=== PATIENT | female | born 1960 | race Caucasian/White ===

== ENCOUNTER 2016-07-09 13:56 | Inpatient (IN) | payer OTHER ==
[~2016-07-09] VITALS: Ht 160 cm; Wt 70.8 kg
[2016-07-09 13:58] VITALS: BP 123/79
[2016-07-09] MEDS ORDERED: NACL 0.9% 1,000 ML IV SCH (14:09)
[2016-07-09] MEDS ORDERED: ONDANSETRON 4 MG/2 ML VIAL IVP ONE (14:10)
--- NOTE | 2016-07-09 14:30 | NUR ---
55F BIBA FROM HOME C/O 5150 HOLD; PT PLACED ON 5150 HOLD BY KEVON BRADLEY; PER AMS, KEVON BRADLEY WENT TO DO WELFARE CHECK ON PT AT PT'S HOME; PER FAMILY, PT HAS BEEN REFUSING TO EAT FOR 3 WEEKS, REFUSED TO BATHE FOR SEVERAL DAYS, AND HAS BEEN DRINKING 3 BOTTLES OF VODKA EVERY WEEK FOR 3 WEEKS; PT DENIES ANY IDEAS OF SUICIDAL IDEATION, HURTING SELF OR OTHERS AT THIS TIME. HX: ALCOHOL ABUSE; DENIES DIARRHEA; SKIN IS PINK/WARM/DRY; AAOX4 WITH EVEN AND STEADY GAIT; LUNGS CLEAR BL; HR EVEN AND REGULAR; PT DENIES ANY FEVER, CP, SOB, OR COUGH AT THIS TIME; PATIENT STATES PAIN OF 6/10 AT THIS TIME; VSS; PATIENT POSITIONED FOR COMFORT; HOB ELEVATED; BEDRAILS UP X2; BED DOWN. ER MD MADE AWARE OF PT STATUS.
--- NOTE | 2016-07-09 14:58 | NUR ---
K 2.[address] FIELD NOTIFIED
[2016-07-09] MEDS ORDERED: NACL 0.9% 1,000 ML IV ONE ×2 (15:45→17:15)
[2016-07-09] MEDS ORDERED: POTASSIUM CHLORIDE 20% 40 MEQ/15 ML UDC PO ONE (15:45)
[2016-07-09] MEDS ORDERED: cefTRIAXone 2,000 MG in DEXTROSE 5% 100 ML IV ONE (17:15)
[2016-07-09] MEDS ORDERED: cefTRIAXone 2,000 MG VIAL ONE (17:23)
[2016-07-09] MEDS ORDERED: LORazepam 2 MG/ML VIAL IVP PRN ×2 (17:45→17:50)
[2016-07-09] MEDS ORDERED: MORPHINE SULFATE 4 MG/ML SYR IVP PRN (17:45)
[2016-07-09] MEDS ORDERED: ONDANSETRON 4 MG/2 ML VIAL IVP PRN (17:45)
[2016-07-09] MEDS ORDERED: MORPHINE SULFATE 2 MG/ML SYR IVP PRN (17:45)
--- NOTE | 2016-07-09 17:58 | NUR ---
STILL AWAITING FOR PATIENT TO BE DISCHARGED FROM [facility] AT 1815 PRIOR TO ADMISSION PER CHARGE NURSE,FERCHO.
--- NOTE | 2016-07-09 18:00 | NUR ---
RECEIVED REPORT FROM THE ER NURSE. WILL BE HERE IN 15 MIN. WILL GET ROOM READY.
--- NOTE | 2016-07-09 18:29 | NUR ---
Patient will be admitted to care of DR TRINH. Admited to TELE. Will go to room 110B. Belongings list completed. Report to BECKY HOPE.
[2016-07-09 18:30] VITALS: BP 108/58
--- NOTE | 2016-07-09 18:30 | NUR ---
PT CAME ON UNIT WITH 2 ER NURSES. PT AMBULATED FROM GURNEY TO BED. PT IS UNSTEADY. PT IS WET. CHANGED GOWN. STARTED V/S. V/S WITHIN N0RMAL RANGE. PT'S IV ON R AC 20G. NS RUNNING BOLUS. I PLACED IT IN THE PUMP AND IS RUNNING AT 200ML/HR. PLACED A BEDSIDE COMMODE. WILL ENDORSE PT TO THE DATA BASE ADMINISTRATOR NURSE. Addendum: 07/09/16 at 1950 by Claudia Milian RN SITTER AT BEDSIDE.
--- NOTE | 2016-07-09 19:20 | NUR ---
ENDORSED PT TO THE NIGHTSHIFT NURSE AT BEDSIDE FOR CONTINUITY OF CARE. PT IS ON 5150 HOLD. SITTER AT BEDSIDE. PT IS HUNGRY. GAVE HER SOME JELLO AND APPLE JUICE. PT IS IN STABLE CONDITION.
--- NOTE | 2016-07-09 19:30 | NUR ---
ADMITTED 55YEARS OLD FEMALE FROM ER VIA MELISSA, CC: ALCOHOL INTOXICATION WITH SUICIDAL TENDENCY. DX: PANCREATITIS. 5150 HOLD, SITTER 1:1 AT BEDSIDE. ORIENTED TO ROOM AND UNIT ROUTINES. CALL LIGHT WITHIN REACH. NO COMPLAINS AT THIS TIME.
[2016-07-09 22:05] VITALS: BP 101/71
[2016-07-10] MEDS: NACL 0.9% 1,000 ML IV SCH ×5 (00:20→23:57)
[2016-07-10 00:35] VITALS: BP 92/53
--- NOTE | 2016-07-10 00:42 | NUR ---
ASLEEP. SITTER AT BEDSIDE. NO COMPLAINS. VITALS SIGNS STABLE. AFEBRILE. SLEEPING. CALL LIGHT WITHIN REACH.
[2016-07-10 03:55] VITALS: BP 92/58
--- NOTE | 2016-07-10 03:57 | NUR ---
BEDSIDE COMMODE IN USE, SITTER 1:1 AT BEDSIDE. AWAKE. NO COMPLAINS. CALL LIGHT WITHIN REACH.
[2016-07-10] MEDS: ACETAMINOPHEN 325 MG TAB PO PRN ×2 (07:03→16:46)
--- NOTE | 2016-07-10 07:26 | NUR ---
ENDORSED CARE AT BEDSIDE WITH AMBER CALL RN IN STABLE CONDITION.
--- NOTE | 2016-07-10 07:27 | NUR ---
RECEIVED REPORT FROM NIGHT RN. PT RESTING IN BED. AAOX4. NO S/S OF ACUTE DISTRESS. PT STATES PAIN IS REDUCED FROM HEADACHE. IV SITE PATENT AND INTACT. SITTER AT BEDSIDE. CALL LIGHT WITHIN REACH. SAFETY MEASURES ENSURED. WILL CONTINUE TO MONITOR.
--- NOTE | 2016-07-10 07:57 | NUR ---
PATIENT HAS BEEN SCREENED AND CATEGORIZED HIGH NUTRITION RISK. PATIENT WILL BE SEEN WITHIN 1-2 DAYS OF ADMISSION. 07/10/16-07/11/[address]
[2016-07-10 08:00] VITALS: BP 104/62
[2016-07-10] MEDS ORDERED: POTASSIUM CHLORIDE 40 MEQ, LIDOCAINE 1% 25 MG in NACL 0.9% 250 ML IV SCH (09:00)
[2016-07-10] MEDS: ENOXAPARIN 40 MG/0.4 ML SYR SUBQ SCH (09:38)
[2016-07-10] MEDS: POTASSIUM CHLORIDE 10 MEQ TABER PO SCH ×2 (09:40→13:41)
--- NOTE | 2016-07-10 10:27 | NUR ---
PT RESTING IN BED. NO S/S DISTRESS. PT DENIES PAIN. CALL LIGHT WITHIN REACH. SAFETY MEASURES ENSURED. WILL CONTINUE TO MONITOR.
--- NOTE | 2016-07-10 11:57 | NUR ---
PT SLEEPING IN BED. NO S/S OF ACUTE DISTRESS. CALL LIGHT WITHIN REACH. SAFETY MEASURES ENSURED. WILL CONTINUE TO MONITOR.
[2016-07-10 12:00] VITALS: BP 94/60
[2016-07-10] MEDS ORDERED: MAG SULF 2000 MG/WATER PREMIX 100 ML IV SCH (13:00)
[2016-07-10] MEDS ORDERED: NICOTINE TRANSD SYS 21 MG/24 HR PATCH TD SCH (13:00)
--- NOTE | 2016-07-10 13:19 | NUR ---
CM NOTE PER [facility] ADMINISTRATOR RADHA EXT [id number], REVIEWS SHOULD GO TO [facility]. INITIAL REVIEW SENT TO FAX# [phone] TRACKING# [id number], PH# [phone] PAT EXT [id number]
--- NOTE | 2016-07-10 14:46 | NUR ---
PT RESTING IN BED. NO S/S OF ACUTE DISTRESS. PT DENIES PAIN. IV SITE PATENT AND INTACT. CALL LIGHT WITHIN REACH. SITTER AT BEDSIDE. WILL CONTINUE TO MONITOR.
[2016-07-10 16:00] VITALS: BP 94/60
--- NOTE | 2016-07-10 16:31 | NUR ---
PT RESTING IN BED. NO S/S OF ACUTE DISTRESS. PT STATES PAIN IS 5/10 HEADACHE. WILL MEDICATE ORDERED.
--- NOTE | 2016-07-10 19:30 | NUR ---
ENDORSED PLAN OF CARE TO NIGHT RN. PT REMAINS IN STABLE CONDITION.
--- NOTE | 2016-07-10 19:45 | NUR ---
RECEIVED PT IN STABLE CONDITION FROM AM NURSE. AWAKE,ALERT AND ORIENTED X4. ON TELE MONITOR. WITH IVF INFUSING WELL ON THE RT AC#20. WITH ASSISTANCE TO BSC. STILL WITH 1;1 SITTER. PLAN OF CARE DISCUSSED AND VERBALIZED UNDERSTANDING. CALL LIGHT PLACED WITHIN EASY REACH. INSTRUCTED TO CALL FOR ASSIST. WILL CONTINUE TO MONITOR.
[2016-07-10 20:00] VITALS: BP 98/65
--- NOTE | 2016-07-10 21:00 | NUR ---
PT HAS NO SUICIDAL INTENTION THIS TIME. BUT STILL NEED FREQUENT ROUNDS. WILL CONTINUE TO MONITOR.
[2016-07-11] VITALS: BP 94/61
--- NOTE | 2016-07-11 00:30 | NUR ---
SLEEPING AT THIS TIME. NO S/S OF ANY DISCOMFORT NOTED.
[2016-07-11 04:15] VITALS: BP 98/60
--- NOTE | 2016-07-11 04:25 | NUR ---
PT HAS BEEN STABLE DURING THE NIGHT. NO PAIN NOTED.
--- NOTE | 2016-07-11 06:00 | NUR ---
ASLEEP. NO S/S DISCOMFORT NOR PAIN NOTED.
--- NOTE | 2016-07-11 07:25 | NUR ---
ENDORSED PT IN STABLE CONDITION TO AM NURSE.
--- NOTE | 2016-07-11 07:30 | NUR ---
RECEIVED PT AAOX4. NO SOB NOTED. NO C/O PAIN AT THIS TIME. IV TO RT FOREARM PATENT AND INTACT. CHEST CLEAR. ABDOMEN SOFT, BOWEL SOUNDS PRESENT. NO EDEMA NOTED. STILL ON CLEAR LIQUIDS. INSTRUCTED PT TO CALL FOR ASSISTANCE, CALL LIGHT WITHIN REACH. PT VERBALIZED UNDERSTANDING.
[2016-07-11 08:00] VITALS: BP 104/72
--- NOTE | 2016-07-11 08:55 | NUR ---
CLEAR LIQUIDS TOLERATED BY PT. NO N&V NOTED.
[2016-07-11] MEDS: ENOXAPARIN 40 MG/0.4 ML SYR SUBQ SCH (09:00)
--- NOTE | 2016-07-11 09:23 | NUR ---
CM NOTE CONCURRENT REVIEW SENT TO [facility] FAX# [phone] TRACKING# [id number], PH# [phone] PAT EXT [id number]
[2016-07-11] MEDS: NICOTINE TRANSD SYS 21 MG/24 HR PATCH TD SCH (09:48)
[2016-07-11 12:00] VITALS: BP 93/66
--- NOTE | 2016-07-11 12:30 | NUR ---
FULL LIQUIDS TOLERATED BY PT. NO N&V NOTED.
--- NOTE | 2016-07-11 14:52 | NUR ---
07/11/16 RD INITIAL ASSESSMENT COMPLETED PLEASE REFER TO NUTRITION ASSESSMENT UNDER CARE ACTIVITY FOR ESTIMATED NUTRITIONAL NEEDS. RD RECOMMENDATIONS: 1. CONTINUE FULL LIQUID DIET TOLERATED PER MD 2. WHEN MEDICALLY APPROPRIATE CONSIDER ADVANCE DIET TOLERATED TO REGULAR 3. ENCOURAGE INCREASED PO INTAKES 4. RD WILL F/U 3-5 DAYS; MODERATE RISK. SCOTTIE MCLEOD RD
[2016-07-11] MEDS: NACL 0.9% 1,000 ML IV SCH ×2 (15:40→19:44)
[2016-07-11 16:00] VITALS: BP 94/61
--- NOTE | 2016-07-11 16:00 | NUR ---
PRESENT IV INFILTRATED. WILL RESTART A NEW LINE SOON.
--- NOTE | 2016-07-11 18:06 | NUR ---
NEW IV LINE RESTARTED ON RT HAND WITH GAUGE 22.
--- NOTE | 2016-07-11 19:10 | NUR ---
PT RESTING IN BED. NO SOB NOTED. NO SIGNS OF PAIN. WILL ENDORSE TO NEXT SHIFT NURSE FOR CONTINUITY OF CARE.
--- NOTE | 2016-07-11 19:20 | NUR ---
RECEIVED PT IN STABLE CONDITION FROM AM NURSE. SLEEPING ,BUT EASILY AROUSE WHEN NAME CALLED. ON TELE MONITOR-SR. HAS IVF INFUSING WELL ON THE RT HAND #24. CLEAR AND PATENT. BED ON LOW POSITION. SIDE RAILS UP X2. PLAN OF CARE DISCUSSED AND VERBALIZED UNDERSTANDING. CALL LIGHT PLACED WITHIN EASY REACH. WILL CONTINUE TO MONITOR.
[2016-07-11 20:00] VITALS: BP 90/60
--- NOTE | 2016-07-11 22:00 | NUR ---
HAS BEEN ASSISTED TO THE BSC. VOIDING WELL, WITH LOOSE YELLOWISH STOOL NOTED. WILL CONTINUE TO MONITOR.
[2016-07-12 00:10] VITALS: BP 91/61
--- NOTE | 2016-07-12 02:00 | NUR ---
SLEEPING AT THIS TIME. NO DISCOMFORT NOTED.
[2016-07-12 04:10] VITALS: BP 92/60
--- NOTE | 2016-07-12 04:10 | NUR ---
PT HAS BEEN STABLE. NO C/O OF ANY DISCOMFORT NOR PAIN.
[2016-07-12] MEDS: NACL 0.9% 1,000 ML IV SCH ×3 (04:14→13:31)
[2016-07-12] MEDS: ACETAMINOPHEN 325 MG TAB PO PRN (07:03)
--- NOTE | 2016-07-12 07:30 | NUR ---
ENDORSED PT IN STABLE CONDITION TO AM NURSE.
--- NOTE | 2016-07-12 07:35 | NUR ---
RECEIVED PT SITTING IN BED AAOX4 AND VOICED NO C/O PAIN AT THIS TIME. SHIFT ASSESSMENT DONE AND CHARTED. PLAN OF CARE, MEDS, TREATMENTS AND SAFETY DISCUSSED WITH PT AND PT VERBALIZED UNDERSTANDING. WILL CONTINUE TO MONITOR PT.
[2016-07-12 08:00] VITALS: BP 111/70
[2016-07-12] MEDS: ENOXAPARIN 40 MG/0.4 ML SYR SUBQ SCH (09:00)
[2016-07-12] MEDS: NICOTINE TRANSD SYS 21 MG/24 HR PATCH TD SCH (09:09)
[2016-07-12] MEDS ORDERED: MAGNESIUM OXIDE 400 MG TAB PO SCH (09:29)
[2016-07-12] MEDS ORDERED: POTASSIUM CHLORIDE 10 MEQ TABER PO SCH (09:29)
--- NOTE | 2016-07-12 09:30 | NUR ---
TOOK PO MEDS WELL. PT ON FULL LIQUID DIET AND TOLERATING IT WELL. WANTED SOMETHING MORE SUBSTANTIAL THAN PRESENT DIET. WILL WAIT FOR MD TO CHANGE DIET.
--- NOTE | 2016-07-12 10:26 | NUR ---
CM NOTE CONCURRENT REVIEW SENT TO [facility] FAX# [phone] TRACKING# [id number], PH# [phone] PAT EXT [id number]
--- NOTE | 2016-07-12 11:00 | NUR ---
PT AMBULATED IN THE HALLWAY AND TOLERATED IT WELL.
[2016-07-12 12:00] VITALS: BP 112/77
--- NOTE | 2016-07-12 13:02 | NUR ---
P.T. NOTES P.T. EVAL DONE; D/C FROM P.T. AFTER TX; NURSING TO AMBULATE PATIENT ADLIB; REFER TO EVAL FOR DETAILS.
--- NOTE | 2016-07-12 13:30 | NUR ---
PT RESTING IN BED COMFORTABLY. NO C/O PAIN/ DISCOMFORT VOICED. PT TOLERATED REGULAR DIET WELL.
[2016-07-12 16:00] VITALS: BP 110/68
--- NOTE | 2016-07-12 16:20 | NUR ---
DR. TRINH WAS IN TO SEE PT AND LEFT DISCHARGE ORDER AND PT AWARE.
--- NOTE | 2016-07-12 18:00 | NUR ---
DISCHARGE INSTRUCTIONS GIVEN TO PT AND PT VERBALIZED UNDERSTANDING. SALINE LOCK REMOVED WITH OLD CATH TIP INTACT AND PRESSURE DRESSING APPLIED TO SITE. TELE BOX REMOVED AND RETURNED TO TAXATION CONSULTANT. PT DISCHARGED TO HOME ACCOMPANIED BY HER SISTER VIA PRIVATE VEHICLE IN A STABLE CONDITION. ALL PT'S BELONGING SENT WITH PT.
== END 2016-07-12 18:00 | disposition home or self-care (01) | DRG 282 ==
LOC: MED 13:56 → MTU 17:47
PROVIDERS: ADMIT Internal Medicine Pulmonary Disease; ATTEND Internal Medicine Pulmonary Disease
DX: K85.20 Alcohol induced acute pancreatitis without necrosis or infection (principal); R45.851 Suicidal ideations; F33.1 Major depressive disorder, recurrent, moderate; E83.42 Hypomagnesemia; F10.229 Alcohol dependence with intoxication, unspecified; F17.210 Nicotine dependence, cigarettes, uncomplicated; E87.6 Hypokalemia; N39.0 Urinary tract infection, site not specified; Y90.8 Blood alcohol level of 240 mg/100 ml or more; Z88.0 Allergy status to penicillin

== ENCOUNTER 2016-08-15 17:30 | Emergency (ER) | payer OTHER ==
[~2016-08-15] VITALS: Ht 162.6 cm; Wt 59.0 kg
[2016-08-15 17:47] VITALS: BP 106/78
--- NOTE | 2016-08-15 20:25 | NUR ---
PT TAKEN TO BED 4
--- NOTE | 2016-08-15 20:30 | NUR ---
55Y F PRESENTED TO ER C/O OF ABDOMINAL CRAMPING, NAUSEA AND BELCHING. PAIN 5/10 IN SCALE. V/S TAKEN AND WNL.
--- NOTE | 2016-08-15 20:34 | NUR ---
Dr. Victoria evaluating patient at bedside.
[2016-08-15] MEDS ORDERED: NACL 0.9% 500 ML IV ONE (20:36)
[2016-08-15] MEDS ORDERED: KETOROLAC 30 MG/ML VIAL IVP ONE (20:40)
[2016-08-15] MEDS ORDERED: ONDANSETRON 4 MG/2 ML VIAL IVP ONE (20:40)
[2016-08-15] MEDS ORDERED: NACL 0.9% 1,000 ML IV ONE (20:55)
[2016-08-15 21:49] LABS: HEMATOCRIT 40.2 % (36-48); HEMOGLOBIN 12.9 g/dL (12.0-16.0); MEAN CORPUSCULAR HEMOGLOBIN 33 pg (27-31); MEAN CORPUSCULAR HGB CONC 32 g/dL (33-37); MEAN CORPUSCULAR VOLUME 102 fL (80-94); PLATELET COUNT (AUTO) 529 K/uL (140-450); RED BLOOD CELL COUNT(AUTO) 3.93 MIL/uL (4.20-5.40); RED CELL DISTRIBUTION WIDTH 13.2 % (11.6-13.7); WHITE BLOOD COUNT (AUTO) 18.2 K/uL (4.8-10.8)
[2016-08-15 22:03] LABS: BAND % (MANUAL) 5 % (0-8); NEUTROPHILS % (MANUAL) 63 (43-65)
[2016-08-15 22:04] LABS: LYMPHOCYTES % (MANUAL) 24 % (20-46); MONOCYTES % (MANUAL) 8 % (5-12); PLATELET ESTIMATE INCREASED
[2016-08-15 22:05] LABS: ALBUMIN 2.9 g/dL (3.4-5.0); ANION GAP 21.6 (8-16); CALCIUM 9.9 mg/dL (8.5-10.1); CARBON DIOXIDE 21.5 mmol/L (21-32); CREATININE 1.1 mg/dL (0.6-1.3); POTASSIUM 4.1 mmol/L (3.5-5.1); TOTAL BILIRUBIN 0.4 mg/dL (0.0-1.0); TOTAL PROTEIN, SERUM 8.4 g/dL (6.4-8.2)
[2016-08-15] MEDS ORDERED: PANTOPRAZOLE 40 MG INJ VIAL IVP ONE (22:35)
[2016-08-15 23:45] VITALS: BP 106/78
--- NOTE | 2016-08-15 23:45 | NUR ---
Patient discharged with v/s stable. Written and verbal after care instructions given and explained. Patient alert, oriented and verbalized understanding of instructions. Ambulatory with steady gait. All questions addressed prior to discharge. ID band removed. Patient advised to follow up with PMD. Rx of OMEPRAZOLE, ZOFRAN, TRAMADOL given. Patient educated on indication of medication including possible reaction and side effects. Opportunity to ask questions provided and answered.
== END 2016-08-15 23:45 | disposition home or self-care (01) ==
LOC: MED 17:30
DX: K29.70 Gastritis, unspecified, without bleeding (principal); Z88.0 Allergy status to penicillin
CPT/HCPCS: 36415; 80053; 83690; 85025; 96361; 96374; 96375; 99285; C9113; J1885; J2405; J7030

== ENCOUNTER 2017-05-26 20:19 | Inpatient (IN) | payer OTHER ==
[~2017-05-26] VITALS: Ht 160 cm; Wt 61.0 kg
[2017-05-26 20:28] VITALS: BP 91/53
[2017-05-26] MEDS ORDERED: NACL 0.9% 1,000 ML IV ONE (21:05)
[2017-05-26 22:51] LABS: PROTHROMBIN TIME 10.4 secs (10.8-13.4)
[2017-05-26 22:55] LABS: BASOPHILS # (AUTO) 0.3 K/uL (0.00-0.22); BASOPHILS % (AUTO) 1.4 % (0.0-2.0); EOSINOPHILS # (AUTO) 0.2 K/uL (0-0.4); HEMATOCRIT 36.8 % (36-48); HEMOGLOBIN 12.5 g/dL (12.0-16.0); LYMPHOCYTES # (AUTO) 2.2 K/uL (2.5-16.5); LYMPHOCYTES % (AUTO) 11.3 % (20.5-51.1); MEAN CORPUSCULAR HEMOGLOBIN 34 pg (27-31); MEAN CORPUSCULAR HGB CONC 34 g/dL (33-37); MEAN CORPUSCULAR VOLUME 100 fL (80-94); MONOCYTES # (AUTO) 0.8 K/uL (0.8-1.0); MONOCYTES % (AUTO) 4.3 % (1.7-9.3); PLATELET COUNT (AUTO) 275 K/uL (140-450); RED BLOOD CELL COUNT(AUTO) 3.68 MIL/uL (4.20-5.40); RED CELL DISTRIBUTION WIDTH 12.7 % (11.6-13.7); WHITE BLOOD COUNT (AUTO) 19.5 K/uL (4.8-10.8)
[2017-05-26 23:01] LABS: ALBUMIN 3.4 g/dL (3.4-5.0); ANION GAP 15.5 (8-16); CARBON DIOXIDE 21.5 mmol/L (21-32); CREATININE 0.7 mg/dL (0.6-1.3); SALICYLATE 6.1 mg/dL (2.8-20.0); TOTAL BILIRUBIN 0.1 mg/dL (0.0-1.0)
[2017-05-26 23:08] LABS: ACETAMINOPHEN 102.3 ug/ml (10-30)
[2017-05-27 02:12] LABS: BARBITURATE, URINE NEG. ng/ml (NEG <=200); BENZODIAZEPINE, URINE NEG. ng/mL (NEG <=200); CANNABINOID, URINE NEG. ng/mL (NEG <=50); COCAINE, URINE NEG. ng/mL (NEG <=300); OPIATE, URINE POS. ng/mL (NEG <=2000); PHENCYCLIDINE SCREEN,URINE NEG. ng/mL (NEG <=25)
[2017-05-27] MEDS ORDERED: LORazepam 2 MG/ML VIAL IVP PRN (02:15)
[2017-05-27] MEDS ORDERED: ONDANSETRON 4 MG/2 ML VIAL IVP PRN (02:15)
[2017-05-27 03:30] VITALS: BP 134/68
[2017-05-27] MEDS: NACL 0.9% 1,000 ML IV SCH ×3 (03:30→22:26)
[2017-05-27] MEDS: MORPHINE SULFATE 2 MG/ML SYR IVP PRN ×5 (04:04→23:05)
[2017-05-27 08:00] VITALS: BP 139/71
[2017-05-27 09:29] LABS: HEMATOCRIT 38.5 % (36-48); HEMOGLOBIN 12.9 g/dL (12.0-16.0); MEAN CORPUSCULAR HEMOGLOBIN 33 pg (27-31); MEAN CORPUSCULAR HGB CONC 34 g/dL (33-37); MEAN CORPUSCULAR VOLUME 99 fL (80-94); PLATELET COUNT (AUTO) 280 K/uL (140-450); RED BLOOD CELL COUNT(AUTO) 3.87 MIL/uL (4.20-5.40); RED CELL DISTRIBUTION WIDTH 12.7 % (11.6-13.7); WHITE BLOOD COUNT (AUTO) 18.8 K/uL (4.8-10.8)
[2017-05-27 09:52] LABS: PROTHROMBIN TIME 10.4 secs (10.8-13.4)
[2017-05-27 09:57] LABS: ALBUMIN 3.9 g/dL (3.4-5.0); ANION GAP 12.7 (8-16); CARBON DIOXIDE 25.3 mmol/L (21-32); CREATININE 0.6 mg/dL (0.6-1.3); TOTAL BILIRUBIN 0.6 mg/dL (0.0-1.0)
[2017-05-27 10:02] LABS: LYMPHOCYTES % (MANUAL) 20 % (20-46); MONOCYTES % (MANUAL) 4 % (5-12)
[2017-05-27 16:05] VITALS: BP 150/91
[2017-05-27] MEDS ORDERED: POLYETHYLENE GLYCOL 17 GM/PKT PO PRN (17:55)
[2017-05-28] VITALS: BP 138/68
[2017-05-28 08:00] VITALS: BP 137/71
[2017-05-28] MEDS: NACL 0.9% 1,000 ML IV SCH (08:15)
[2017-05-28] MEDS ORDERED: ALBUTEROL HFA MDI 90 MCG/ACTUATION 8 GM INH PRN (09:05)
[2017-05-28] MEDS: MORPHINE SULFATE 2 MG/ML SYR IVP PRN ×2 (09:12→13:37)
[2017-05-28] MEDS ORDERED: ALBUTEROL 0.083% 2.5 MG/3 ML NEBU INH PRN (09:25)
[2017-05-28 09:39] LABS: BASOPHILS # (AUTO) 0.2 K/uL (0.00-0.22); BASOPHILS % (AUTO) 1.7 % (0.0-2.0); EOSINOPHILS # (AUTO) 0.1 K/uL (0-0.4); EOSINOPHILS % (AUTO) 0.5 % (0.0-4.0); HEMATOCRIT 39.5 % (36-48); HEMOGLOBIN 13.1 g/dL (12.0-16.0); LYMPHOCYTES # (AUTO) 1.4 K/uL (2.5-16.5); LYMPHOCYTES % (AUTO) 10.9 % (20.5-51.1); MEAN CORPUSCULAR HEMOGLOBIN 33 pg (27-31); MEAN CORPUSCULAR HGB CONC 33 g/dL (33-37); MEAN CORPUSCULAR VOLUME 99 fL (80-94); MONOCYTES # (AUTO) 0.7 K/uL (0.8-1.0); MONOCYTES % (AUTO) 5.8 % (1.7-9.3); NEUTROPHILS # (AUTO) 10.1 K/uL (1.8-7.7); NEUTROPHILS % (AUTO) 81.1 % (42.2-75.2); PLATELET COUNT (AUTO) 283 K/uL (140-450); RED BLOOD CELL COUNT(AUTO) 3.98 MIL/uL (4.20-5.40); RED CELL DISTRIBUTION WIDTH 11.9 % (11.6-13.7); WHITE BLOOD COUNT (AUTO) 12.5 K/uL (4.8-10.8)
[2017-05-28 09:55] LABS: ALBUMIN 3.6 g/dL (3.4-5.0); ANION GAP 14.1 (8-16); CARBON DIOXIDE 25.6 mmol/L (21-32); CREATININE 0.6 mg/dL (0.6-1.3); POTASSIUM 3.7 mmol/L (3.5-5.1); TOTAL BILIRUBIN 0.7 mg/dL (0.0-1.0)
[2017-05-28 09:59] LABS: PROTHROMBIN TIME 10.2 secs (10.8-13.4)
[2017-05-28 10:23] LABS: MAGNESIUM 1.5 mg/dL (1.8-2.4); PHOSPHORUS 2.3 mg/dL (2.5-4.9)
[2017-05-28] MEDS ORDERED: LEVOFLOXACIN 500 MG TAB PO SCH (11:30)
[2017-05-28] MEDS ORDERED: LEVO750T51 PO (16:08)
[2017-05-28] MEDS ORDERED: ALBU0.0912 IH ×2 (16:09→16:11)
[2017-05-28] MEDS ORDERED: LEVO750T2 PO ×2 (16:10→16:11)
[2017-05-30] MEDS ORDERED: LEVOFLOXACIN 500 MG TAB PO SCH (09:00)
== END 2017-05-28 16:45 | disposition home or self-care (01) | DRG 812 ==
LOC: MED 20:19 → MTU 05-27 02:20
PROVIDERS: ADMIT Hospitalist; ATTEND Hospitalist
DX: T39.1X1A Poisoning by 4-Aminophenol derivatives, accidental (unintentional), initial encounter (principal); E83.51 Hypocalcemia; F10.129 Alcohol abuse with intoxication, unspecified; E86.0 Dehydration; Y90.6 Blood alcohol level of 120-199 mg/100 ml; F17.210 Nicotine dependence, cigarettes, uncomplicated; G62.9 Polyneuropathy, unspecified; D72.829 Elevated white blood cell count, unspecified; G89.29 Other chronic pain; F43.22 Adjustment disorder with anxiety; F32.9 Major depressive disorder, single episode, unspecified; J40 Bronchitis, not specified as acute or chronic; Z88.0 Allergy status to penicillin; Y92.89 Other specified places as the place of occurrence of the external cause; Z71.6 Tobacco abuse counseling
CPT/HCPCS: 36415; 80053; 80305; 83735; 84100; 85025; 85610; 87081; 96360; 99285; G0480; G0482; J2270; J2405; J7030